=== PATIENT | female | born 1955 | race Caucasian/White ===

== ENCOUNTER 2018-05-27 15:30 | Outpatient (CLI) | payer MEDICARE ==
[~2018-05-27] VITALS: Ht 172.7 cm; Wt 90.9 kg
--- NOTE | ~2018-05-27 | DS ---
PATIENT:SURI DELEON :53 MEDICAL RECORD: [id number] DISCHARGE SUMMARY ADMISSION DATE: 05/27/18 DISCHARGE DATE: 05/29/18 DATE OF SERVICE: 05/29/2018 DIAGNOSES: 1. Unstable angina. 2. Coronary artery disease. 3. Percutaneous transluminal coronary angioplasty/stent, left circumflex and right coronary artery this admission. HOSPITAL COURSE: Ms. Deleon presents with anginal symptomatology, found to have 2-vessel disease of the left circumflex and RCA, underwent successful PTCA and stent of both territories and was discharged home with the addition of aspirin and Plavix to her medical regimen. Follow up with [facility] in 1 month. TRANSINT:[id number] Voice Confirmation ID: [id number] DOCUMENT ID: [id number] TAWANDA CAMPBELL MD at 1741 CC: [id number] DICTATION DATE: 05/29/18 1631 HAND ZIPPER TRIMMER: 05/29/18 2100 DEP CLI 05/29/18 [id number] [place] [address]
--- NOTE | ~2018-05-27 | HEMODYNAMI ---
PATIENT:SURI CANNON MEDICAL RECORD: [id number] : 53 LOCATION:[id number] ADMISSION DATE: 05/27/18 Generatedon:05/28/201812:57 Patient name: SURI CANNON Patient #: [id number] SSN: : 1 Date of study: 05/28/2018 Page: Of Hemodynamic Procedure Report Patient Data Patient Demographics Procedure consent was obtained First Name: SURI Gender: Female Last Name: KASSANDRA : 1955 Patient #: [id number] Age: 62 year(s) Race: Unknown Additional ID: [id number] Contact details Address: [address] [address] State: [place] City: [place] Zip code: [address] Past Medical History Allergies Allergen Reaction Date Comments Reported Bactrim 05/28/2018 Admission Admission Data Admission Date: 05/27/2018 Admission Time: 18:22 Room #: D.2235 Lab Results Lab Result Date: 05/28/2018 Lab Result Time: 0:00 Biochemistry Name Units Result Min Max BUN mg/dl 14 --(--*-)-- 7 18 Creatinine mg/dl 1 --(--*-)-- 0.6 1.3 CBC Name Units Result Min Max Hemoglobin g/dl 14.4 --(*---)-- 13.5 17.5 Procedure Procedure Types Cath Procedure Diagnostic Procedure C [facility] w/Coronaries Sedation Charges Moderate Sedation up to 15 minutes PCI Procedure Coronary Stent Coronary Stent Initial Procedure Description Procedure Date Procedure Date: 05/28/2018 Procedure Start Time: 12:35 Procedure End Time: 12:55 Procedure Staff Name Function Pratik Britton MD Performing Physician Nadine Rivera RT Monitor Juliane Fowler RT Scrub Filiberto Pimentel RN Nurse Procedure Data Cath Procedure Fluoroscopy Diagnostic fluoroscopy Total fluoroscopy Time: 6 time: 6 min min Diagnostic fluoroscopy Total fluoroscopy dose: 709 dose: 709 mGy mGy Contrast Material Contrast Material Type Amount (ml) Isovue 300 94 Entry Location Entry Primary Successful Side Size Upsize Upsize Entry Closure Castillo ccessful Closure Location (Fr) 1 (Fr) 2 (Fr) Remarks Device Remarks Radial Right 6 Fr Mechanical artery Short Compression Estimated blood loss: 10 ml Diagnostic catheters Device Type Used For End Catheter Placement DIAGNOSTIC [place] 110cm 5 Procedure Fr catheter ([id number]) Procedure Complications No complications Procedure Medications Medication Administration Route Dosage 0.9% NaCl I.V. 100 ml/hr Oxygen etCO2 Nasal cannula 2 l/min Heparin Flush Bag added to field 2 bags (1000units/500ml NS) Lidocaine 2% added to field 20 Radial Cocktail added to field 1 syringe (Verapomil 2mg/Nitro 400mcg/Heparin 1500units) Versed I.V. 2 mg Fentanyl I.V. 100 mcg Versed I.V. 1 mg Radial Cocktail I.A. 1 syringe (Verapomil 2mg/Nitro 400mcg/Heparin 1500units) Heparin Bolus I.V. 4000 units Plavix P.O. 75 mg Hemodynamics Rest HGB: 14.4 (g/dl) Heart Rate: 84 (bpm) Snapshots Pre Cath Intra NCS Post Cath Vital Signs Time Heart Resp SPO2 etCO2 NIBP (mmHg) Rhythm Pain Sedation Rate (ipm) (%) (mmHg) Status Level (bpm) 12:20:40 84 18 96 0 173/88(140) NSR 0 (11) 10(A) , No pain 12:25:35 75 17 95 35.9 145/79(114) NSR 0 (11) 10(A) , No pain 12:30:24 74 15 94 37.5 145/76(121) NSR 0 (11) 10(A) , No pain 12:35:11 69 13 93 13.5 123/71(98) NSR 0 (11) 10(A) , No pain 12:39:57 81 30 90 34.5 108/67(85) NSR 0 (11) 9(A) , No pain 12:44:38 69 12 90 36 119/68(82) NSR 0 (11) 9(A) , No pain 12:50:04 84 18 89 35.9 162/96(145) NSR 0 (11) 10(A) , No pain 12:54:58 78 20 85 32.2 164/89(142) NSR 0 (11) 10(A) , No pain Medications Time Medication Route Dose Verified Delivered Reason Not es Effectiveness by by 12:20:38 0.9% NaCl I.V. 100 Filiberto Filiberto Per physician ml/hr Margarito Pimentel RN RN 12:20:51 Oxygen etCO2 2 l/min Filiberto Filiberto Per physician Nasal Margarito Pimentel cannula RN RN 12:21:08 Heparin Flush added 2 bags Filiberto Filiberto used for Bag to Lorthania Pimentel procedure (1000units/500ml field RN RN NS) 12:21:19 Lidocaine 2% added 20ml Filiberto Filiberto for local to vial Lorigan Margarito anesthetic field RN RN 12:30:32 Radial Cocktail added 1 Filiberto Filiberto used for (Verapomil to syringe Margarito Pimentel procedure 2mg/Nitro field RN RN 400mcg/Heparin 1500units) 12:33:37 Versed I.V. 2 mg Filiberto Filiberto for sedation Margarito Pimentel RN RN 12:33:45 Fentanyl I.V. 100 mcg Filiberto Filiberto for sedation Margarito Pimentel RN RN 12:36:08 Versed I.V. 1 mg Filiberto Filiberto for sedation Margarito Pimentel RN RN 12:37:09 Radial Cocktail I.A. 1 Filiberto Pratik for (Verapomil syringe Margarito Britton MD vasodilation 2mg/Nitro RN 400mcg/Heparin 1500units) 12:42:49 Heparin Bolus I.V. 4000 Filiberto Filiberto for units Margarito Pimentel anticoagulation RN RN 12:51:45 Plavix P.O. 75 mg Filiberto Filiberto for Margarito Pimentel antiplatelet RN RN therapy Procedure Log Time Note 11:54:02 Signed procedure consent form obtained from patient. 11:54:05 Time tracking: Regular hours (M-F 7:00 - 5:00) 11:54:13 Plan of Care:Hemodynamics will remain stable., Cardiac rhythm will remain stable., Comfort level will be maintained., Respiratory function will remain adequate., Patient/ family verbilizes understanding of procedure., Procedure tolerated without complication., Recovers from procedure without complications.. 11:55:58 H&P Date Dictated: 05/28/2018 Within 30 days and on chart.. 11:56:17 Patient allergic to Bactrim 11:56:59 Lab Result : Creatinine 1 mg/dl 11:56:59 Lab Result : BUN 14 mg/dl 11:56:59 Lab Result : Hemoglobin 14.4 g/dl 12:00:34 Filiberto Pimentel RN sent for patient. Start room use. 12:11:12 Patient received from Med/Surg to CCL 1 Alert and oriented. Tansferred to table in Supine position. 12:11:14 Warm blankets applied, and kurtis hugger turned on for patient comfort. 12:11:14 Correct patient and procedure confirmed by team. 12:11:15 ECG and BP/O2 sat monitors applied to patient. 12:19:34 Vital chart was started 12:20:38 0.9% NaCl 100 ml/hr I.V. was administered by Filiberto Pimentel RN; Per physician; 12:20:51 Oxygen 2 l/min etCO2 Nasal cannula was administered by Filiberto Pimentel RN; Per physician; 12:21:08 Heparin Flush Bag (1000units/500ml NS) 2 bags added to field was administered by Filiberto Pimentel RN; used for procedure; 12:21:19 Lidocaine 2% 20ml vial added to field was administered by Filiberto Pimentel RN; for local anesthetic; 12:24:54 Baseline sample Acquired. 12:24:58 Rhythm: sinus rhythm 12:24:59 Full Disclosure recording started 12:24:59 Pre-procedure instructions explained to patient. 12:25:00 Pre-op teaching completed and patient verbalized understanding. 12:25:03 Family in patients room. 12:25:05 Patient NPO since Midnight. 12:25:07 Is the patient allergic to Iodine/contrast media? No. 12:25:11 Is patient on blood thinner?Yes 12:25:14 ACC The patient was administered the following blood thiners within the last 24 hours: ACCPlavix 12:25:17 Patient diabetic? No. 12:25:20 Patient not . Patient is over age 55. 12:25:23 Previous problem with sedation/anesthesia? No ? 12:25:24 Snore? Yes 12:25:25 Sleep apnea? No 12:25:27 Deviated septum? No 12:25:28 Opens mouth fully? Yes 12:25:28 Sticks out tongue? Yes 12:25:30 Airway obstruction? No ? 12:25:33 Dentures? No ? 12:25:36 Modified Mynor's test Ulnar < 7 seconds 12:25:39 Patient pain scale 0/10 ?. 12:25:44 IV patent on arrival in left hand with 0.9% NaCl at [facility]. 12:25:47 Lab results completed and on chart. 12:25:50 Right Radial & Right Groin area was prepped with chlora-prep and draped in sterile fashion 12:25:51 Alarms reviewed by R. N. 12:25:52 Sharps counted by scrub and verified by R.N. 12:25:56 Use device set Radial Dx or PCI 12:25:57 ACIST Syringe (11143) opened to sterile field. 12:25:58 Bag Decanter (2002S) opened to sterile field. 12:25:59 ACIST Hand Control (41993) opened to sterile field. 12:25:59 ACIST Manifold (14334) opened to sterile field. 12:26:01 Tegaderm 4 x 4 (1626W) opened to sterile field. 12:26:17 Medline Cath Pack ([id number]) opened to sterile field. 12:26:17 DIAGNOSTIC WIRE .035 260cm J wire (839823) opened to sterile field. 12:26:22 SHEATH 6Fr Prelude Radial ([id number]) opened to sterile field. 12:30:32 Radial Cocktail (Verapomil 2mg/Nitro 400mcg/Heparin 1500units) 1 syringe added to field was administered by Filiberto Pimentel RN; used for procedure; 12:30:42 Zero performed for pressure channel P1 12:32:27 --------ALL STOP TIME OUT------ 12:32:27 Final Timeout: patient, procedure, and site verified with staff and physician. All members of the team are in agreement. 12:32:30 Right Radial & Right Groin site verified by team. 12:32:34 Physical assessment completed. ASA score P 2 - A patient with mild systemic disease as per Pratik Britton MD. 12:32:37 Sedation plan: IV Moderate Sedation Medication:Versed, Fentanyl 12:33:37 Versed 2 mg I.V. was administered by Filiberto Pimentel RN; for sedation; 12:33:45 Fentanyl 100 mcg I.V. was administered by Filiberto Pimentel RN; for sedation; 12:35:31 Procedure started. 12:35:48 Local anesthetic to right radial artery with Lidocaine 2% by Pratik Britton MD.INITIAL ACCESS ONLY 12:36:08 Versed 1 mg I.V. was administered by Filiberto Pimentel RN; for sedation; 12:36:34 A 6 Fr Short sheath was inserted into the Right Radial artery 12:36:52 A DIAGNOSTIC [place] 110cm 5 Fr catheter ([id number]) was advanced over the wire and used for Procedure. 12:37:09 Radial Cocktail (Verapomil 2mg/Nitro 400mcg/Heparin 1500units) 1 syringe I.A. was administered by Pratik Britton MD; for vasodilation; 12:37:28 LV gram done using MYLES 12:37:30 Injector settings: Ml/sec: 7, Volume: 15, 12:38:00 EF : 55 % 12:38:31 RCA angiography performed. 12:39:37 Catheter exchanged over wire. 12:39:47 INFLATOR Merit BasixCompak (EW6184) opened to sterile field. 12:40:16 GUIDE 6FR XBLAD 3.5 catheter ([id number]) opened to sterile field. 12:40:39 6 Fr XBLAD 3.5 guide catheter was inserted over the wire 12:42:01 FIELDER XT 190cm guidewire ([id number]) opened to sterile field. 12:42:09 LCA angiography performed. 12:42:32 FIELDER wire advanced. 12:42:49 Heparin Bolus 4000 units I.V. was administered by Filiberto Pimentel RN; for anticoagulation; 12:43:48 Wire advanced across lesion. 12:45:12 Place stent Inflation Number: 1 A INTEGRITY RX 3.0 x 15 stent ([id number]) was prepped and advanced across the Mid CX. The stent was deployed at 13 TERRI for 0:10 (min:sec). 12:45:50 Inflation number: 2 The stent balloon was then re-inflated across the Mid CX to 17 TERRI for 0:10 (min:sec). 12:45:56 Stent catheter was removed intact over wire. 12:47:41 Wire removed. 12:48:07 GUIDE CATHETER EXCHANGED OVER WIRE 12:48:17 GUIDE 6FR EBU 3.0 catheter ([id number]) opened to sterile field. 12:48:48 6 Fr EBU 3 guide catheter was inserted over the wire 12:50:21 GUIDE REMOVED 12:50:50 Procedure ended.(Physican Out) 12:50:58 TR BAND Standard ([id number]) opened to sterile field. 12:51:45 Plavix 75 mg P.O. was administered by Filiberto Pimentel RN; for antiplatelet therapy; 12:51:53 Sheath removed intact; hemostasis achieved with Mechanical Compression to the Right Radial artery. 12:52:46 Fluoroscopy time 06.00 minutes. 12:52:50 Flurop Dose total: 709 12:52:50 Fluoroscopy dose: 709 mGy 12:53:04 Contrast amount:Isovue 300 94ml. 12:53:06 Sharps counted by scrub and verified by R.N. 12:53:08 TR band inflated with 13cc of air. 12:53:13 Post-procedure physical assessment completed. ASA score P 2 - A patient with mild systemic disease as per Pratik Britton MD. 12:53:16 Post procedure rhythm: sinus rhythm 12:53:19 Estimated blood loss: 10 ml 12:53:20 Post procedure instruction explained to patient.Patient verbalizes understanding. 12:53:21 Patient needs reinforcement of post procedure teaching. 12:54:54 Procedure type changed to Cath procedure, Diagnostic procedure, LHC, LHC w/Coronaries, Sedation Charges, Moderate Sedation up to 15 minutes, PCI procedure, Coronary Stent, Coronary Stent Initial 12:55:34 Procedure and supply charges have been captured, reviewed, submitted and are correct. 12:55:37 Procedure Complication : No complications 12:55:40 Vital chart was stopped 12:55:40 See physician's report for complete and final results. 12:55:41 Report given to Pre/Post Procedure Room. 12:55:44 Patient transfered to Pre/Post Procedure Room with Bed. 12:55:45 Procedure ended. 12:55:45 Full Disclosure recording stopped 12:55:48 End room use (Document Last) Intervention Summary Intervention Notes Time ActionType Lesion and Equipment Action# Pressure Duration Attributes Used 12:45:12 Place stent Mid CX INTEGRITY RX 1 13 00:10 3.0 x 15 stent ([id number]) 12:45:50 Reinflate Mid CX INTEGRITY RX 2 17 00:10 stent 3.0 x 15 balloon stent ([id number]) Device Usage Item Name Manufacture Quantity Catalog Number Hospital Part Current M inimal Lot# / Charge Number Stock Stock Serial# Code ACIST Syringe Acist 1 14643 030782 447428 344678 2 0 (97948) [employer] Bag Decanter Microtek 1 2001S 164171 21386 835684 5 (2001S) Medical Inc. ACIST Hand Acist 1 32410 995537 205919 104208 5 Control (61122) [employer] Inc ACIST Manifold Acist 1 55727 608208 146904 930064 5 (60732) [employer] Inc Tegaderm 4 x 4 3M 1 1626W 771519 762278 949586 5 (1626W) Medline Cath Cardinal 1 [id number] 935076 02871 442534 5 Pack Health ([id number]) DIAGNOSTIC WIRE St Dinh 1 998995 444885 468654 714246 3 0 .035 260cm J wire (894684) SHEATH 6Fr Merit 1 [id number] 482470 607630 365405 5 Prelude Radial Medical ([id number]) DIAGNOSTIC Terumo 1 40-2611 052468 714135 218330 5 [place] 110cm 5 Fr catheter (677160) INFLATOR Merit Merit 1 OY2465 481673 637546 783881 1 5 [employer] ASA Medical (BT6947) GUIDE 6FR XBLAD Cardinal 1 [id number] 976728 737390 658961 1 0 3.5 catheter Health ([id number]) FIELDER XT Aleman 1 [id number] 925376 87497 519752 5 190cm guidewire Vascular ([id number]) INTEGRITY RX Medtronic 1 [id number] 060941 497733 061021 5 [id number] 3.0 x 15 stent ([id number]) GUIDE 6FR EBU Medtronic 1 [id number] 867981 02272 942706 0 3.0 catheter ([id number]) TR BAND Terumo 1 [id number] 667451 772039 479703 4 0 Standard ([id number]) Signature Audit [place] Stage Time Signature Unsigned Intra-Procedure 05/28/2018 Nadine Rivera 12:57:17 PM RT(R) Signatures Monitor : Nadine Rivera Signature : RT Date : Time : [id number] [facility] [place] [address]
--- NOTE | ~2018-05-27 | HEMODYNAMI ---
PATIENT:SURI CANNON MEDICAL RECORD: [id number] : 53 LOCATION:[facility] D.2117 ADMISSION DATE: 05/27/18 Generatedon:05/29/201816:35 Patient name: SURI CANNON Patient #: [id number] SSN: : 1 Date of study: 05/29/2018 Page: Of Hemodynamic Procedure Report Patient Data Patient Demographics Procedure consent was obtained First Name: SURI Gender: Female Last Name: KASSANDRA : 1955 Patient #: [id number] Age: 62 year(s) Race: Unknown Additional ID: [id number] Contact details Address: [place] [address] State: [place] City: [place] Zip code: [address] Past Medical History Allergies Allergen Reaction Date Comments Reported Bactrim 05/28/2018 Bactrim 05/29/2018 Admission Admission Data Admission Date: 05/27/2018 Admission Time: 18:22 [facility] Lab Results Lab Result Date: 05/28/2018 Lab Result Time: 0:00 Biochemistry Name Units Result Min Max BUN mg/dl 14 --(--*-)-- 7 18 Creatinine mg/dl 1 --(--*-)-- 0.6 1.3 CBC Name Units Result Min Max Hemoglobin g/dl 14.4 --(*---)-- 13.5 17.5 Procedure Procedure Types Cath Procedure PCI Procedure Coronary Stent Coronary Stent Initial Procedure Description Procedure Date Procedure Date: 05/29/2018 Procedure Start Time: 16:21 Procedure End Time: 16:34 Procedure Staff Name Function Pratik Britton MD Performing Physician Reji Puga RT Monitor Francois Dent RN Nurse Edwin Gaytan RT Scrub Procedure Data Cath Procedure Fluoroscopy Diagnostic fluoroscopy Total fluoroscopy Time: 1.7 time: 1.7 min min Diagnostic fluoroscopy Total fluoroscopy dose: dose: 62.82 mGy 62.82 mGy Contrast Material Contrast Material Type Amount (ml) Isovue 300 38 Entry Location Entry Primary Successful Side Size Upsize Upsize Entry Closure Succes sful Closure Location (Fr) 1 (Fr) 2 (Fr) Remarks Device Remarks Femoral Right 6 Fr Exoseal artery Short Estimated blood loss: 10 ml Procedure Medications Medication Administration Route Dosage Oxygen etCO2 Nasal cannula 2 l/min Heparin Flush Bag added to field 2 bags (1000units/500ml NS) 0.9% NaCl I.V. 100 ml/hr Fentanyl I.V. 100 mcg Versed I.V. 1 mg Fentanyl I.V. 100 mcg Versed I.V. 1 mg Heparin Bolus I.V. 4000 units Hemodynamics Rest HGB: 14.4 (g/dl) Heart Rate: 72 (bpm) Snapshots Pre Cath Intra NCS Post Cath Vital Signs Time Heart Resp SPO2 etCO2 NIBP (mmHg) Rhythm Pain Sedation Rate (ipm) (%) (mmHg) Status Level (bpm) 16:06:24 70 17 97 0 176/86(126) NSR 0 (11) 10(A) , No pain 16:10:58 76 17 95 0 159/86(144) NSR 0 (11) 10(A) , No pain 16:15:29 73 16 90 0 135/67(109) NSR 0 (11) 10(A) , No pain 16:19:47 66 16 97 36.7 114/66(99) NSR 0 (11) 10(A) , No pain 16:24:03 71 17 96 37.4 121/71(101) NSR 0 (11) 9(A) , No pain 16:28:17 71 16 96 47.2 107/64(85) NSR 0 (11) 9(A) , No pain 16:32:31 68 15 97 26.9 107/62(73) NSR 0 (11) 9(A) , No pain Medications Time Medication Route Dose Verified Delivered Reason Notes Effectiveness by by 16:06:59 Oxygen etCO2 2 Pratik Parrish Per physician Nasal l/min Tobi Dent RN cannula 16:15:56 Heparin Flush added 2 Pratik Parrish used for Bag to bags Tobi Dent tipple mechanic (1000units/500ml field NS) 16:16:07 0.9% NaCl I.V. 100 Pratik Parrish Per physician ml/hr Tobi Dent RN 16:21:57 Fentanyl I.V. 100 Pratik Parrish for sedation mcg Tobi Dent RN 16:22:04 Versed I.V. 1 mg Pratik Parrish for sedation Tobi Dent RN 16:23:36 Fentanyl I.V. 100 Pratik Parrish for sedation mcg Tobi Dent RN 16:23:40 Versed I.V. 1 mg Pratik Parrish for sedation Tobi Dent RN 16:24:49 Heparin Bolus I.V. 4000 Pratik Parrish for units Tobi Dent RN anticoagulation Procedure Log Time Note 15:35:40 Edwin Gaytan RT(R) sent for patient. Start room use. 15:45:41 Time tracking: Regular hours (M-F 7:00 - 5:00) 15:45:49 Plan of Care:Hemodynamics will remain stable., Cardiac rhythm will remain stable., Comfort level will be maintained., Respiratory function will remain adequate., Patient/ family verbilizes understanding of procedure., Procedure tolerated without complication., Recovers from procedure without complications.. 15:58:14 Patient received from PCU to [facility] 3 Alert and oriented. Tansferred to table in Supine position. 15:58:15 Warm blankets applied, and kurtis hugger turned on for patient comfort. 15:58:16 Correct patient and procedure confirmed by team. 15:59:11 Signed procedure consent form obtained from patient. 15:59:14 ECG and BP/O2 sat monitors applied to patient. 16:04:54 Vital chart was started 16:04:56 Baseline sample Acquired. 16:05:01 Rhythm: sinus rhythm 16:05:03 Full Disclosure recording started 16:06:13 H&P Date Dictated: 05/27/2018 Within 30 days and on chart.. 16:06:53 Pre-procedure instructions explained to patient. 16:06:54 Pre-op teaching completed and patient verbalized understanding. 16:06:59 Oxygen 2 l/min etCO2 Nasal cannula was administered by Francois Dent RN; Per physician; 16:07:05 Family in patients room. 16:07:07 Patient NPO since Breakfast. 16:07:32 Patient allergic to Bactrim 16:07:36 Is the patient allergic to Iodine/contrast media? No. 16:07:42 Is patient on blood thinner?Yes 16:07:49 ACC The patient was administered the following blood thiners within the last 24 hours: ACCPlavix 16:08:31 Patient diabetic? No. 16:08:41 ----Pre-sedation anethsthesia assessment.---- 16:08:47 Previous problem with sedation/anesthesia? No ? 16:08:52 Snore? Yes 16:08:54 Sleep apnea? No 16:08:58 Deviated septum? No 16:09:00 Opens mouth fully? Yes 16:09:00 Sticks out tongue? Yes 16:09:03 Airway obstruction? No ? 16:09:07 Dentures? No ? 16:09:11 Pre procedure: right dorsailis pedis pulse 2+ Normal; easily identifiable; not easily obliterated 16:09:17 Patient pain scale 0/10 ?. 16:09:28 IV patent on arrival in left forearm with 0.9% NaCl at [facility]. 16:09:35 Right groin area was prepped with chlora-prep and draped in sterile fashion 16:09:42 Alarms reviewed by R. N. 16:09:42 Sharps counted by scrub and verified by R.N. 16:12:23 CHOICE PT Extra Support 182cm wire ([id number]) opened to sterile field. 16:12:24 INFLATOR Merit BasixCompak ([id number]) opened to sterile field. 16:12:48 SHEATH Prelude 6Fr 0.035 ([id number]-2E-67-035) opened to sterile field. 16:13:04 Use device set CATH PACK 16:13:05 ACIST Syringe (64060) opened to sterile field. 16:13:06 ACIST Hand Control (11157) opened to sterile field. 16:13:06 ACIST Manifold (35499) opened to sterile field. 16:13:07 Medline Cath Pack ([id number]) opened to sterile field. 16:13:08 Bag Decanter () opened to sterile field. 16:13:09 DIAGNOSTIC WIRE .035 260cm J wire (084399) opened to sterile field. 16:13:26 Tegaderm 4 x 4 (1626W) opened to sterile field. 16:15:56 Heparin Flush Bag (1000units/500ml NS) 2 bags added to field was administered by Francois Dent RN; used for procedure; 16:16:07 0.9% NaCl 100 ml/hr I.V. was administered by Francois Dent RN; Per physician; 16:18:58 Physician arrived 16:18:58 --------ALL STOP TIME OUT------ 16:18:59 Final Timeout: patient, procedure, and site verified with staff and physician. All members of the team are in agreement. 16:19:04 Right groin site verified by team. 16:19:07 Physical assessment completed. ASA score P 2 - A patient with mild systemic disease as per Pratik Britton MD. 16:19:11 Sedation plan: IV Moderate Sedation Medication:Versed, Fentanyl 16:20:42 Procedure started. 16:21:44 Local anesthetic to right femoral artery with Lidocaine 2% by Pratik Britton MD.INITIAL ACCESS ONLY 16:21:57 Fentanyl 100 mcg I.V. was administered by Francois Dent RN; for sedation; 16:22:04 Versed 1 mg I.V. was administered by Francois Dnet RN; for sedation; 16:22:26 A 6 Fr Short sheath was inserted into the Right Femoral artery 16:22:43 GUIDE 6FR AR 2.0 SH catheter ([id number]) opened to sterile field. 16:23:26 6 Fr AR 2 SH guide catheter was inserted over the wire 16:23:36 Fentanyl 100 mcg I.V. was administered by Francois Dent RN; for sedation; 16:23:40 Versed 1 mg I.V. was administered by Francois Dent RN; for sedation; 16:24:03 CHOICE wire advanced. 16:24:38 Wire advanced across lesion. 16:24:49 Heparin Bolus 4000 units I.V. was administered by Francois Dent RN; for anticoagulation; 16:25:27 Place stent Inflation Number: 1 A INTEGRITY RX 2.5 x 14 stent ([id number]) was prepped and advanced across the Prox RCA. The stent was deployed at 17 TERRI for 0:10 (min:sec). 16:26:19 Stent catheter was removed intact over wire. 16:26:19 Wire removed. 16:26:20 Guide catheter removed. 16:26:30 EXOSEAL 6Fr (EX600) opened to sterile field. 16:27:05 Sheath removed intact; hemostasis achieved with Exoseal to the Right Femoral artery. 16:27:08 Procedure ended.(Physican Out) 16:28:42 Fluoroscopy time 01.70 minutes. 16:28:50 Flurop Dose total: 62.82 16:28:50 Fluoroscopy dose: 62.82 mGy 16:29:01 Contrast amount:Isovue 300 38ml. 16:29:03 Sharps counted by scrub and verified by R.N. 16:31:06 Insertion/operative site no bleeding no hematoma. 16:31:09 Post-op/insertion site Right Femoral artery dressed using a 4 x 4 and Tegaderm. 16:31:16 Post right femoral artery:stable 16:31:21 Post Procedure Pulses reassessed and unchanged 16:31:24 Post-procedure physical assessment completed. ASA score P 2 - A patient with mild systemic disease as per Pratik Britton MD. 16:31:29 Post procedure rhythm: sinus rhythm 16:31:33 Estimated blood loss: 10 ml 16:31:35 Post procedure instruction explained to patient.Patient verbalizes understanding. 16:31:36 Patient needs reinforcement of post procedure teaching. 16:31:37 Procedure and supply charges have been captured, reviewed, submitted and are correct. 16:34:24 Vital chart was stopped 16:34:29 See physician's report for complete and final results. 16:34:37 Report given to PCU. 16:34:44 Patient transfered to PCU with Bed. 16:34:52 Procedure ended. 16:34:52 Full Disclosure recording stopped 16:34:56 End room use (Document Last) Intervention Summary Intervention Notes Time ActionType Lesion and Equipment Action# Pressure Duration Attributes Used 16:25:27 Place stent Prox RCA INTEGRITY RX 1 17 00:10 2.5 x 14 stent ([id number]) Device Usage Item Name Manufacture Quantity Catalog Number Hospital Part Current Minimal Lot# / Charge Number Stock Stock Serial# Code CHOICE PT Extra [place] 1 [id number] 486929 083575 5 Support 182cm Scientific wire ([id number]) INFLATOR Merit Merit 1 [id number] 393340 185479 232749 15 [facility] ([id number]) SHEATH Prelude Merit 1 [id number] 347406 2910402 792953 5 6Fr 0.035 Medical (AAD-3T-05-035) ACIST Syringe Acist 1 21635 288434 940480 882660 20 (54663) [employer] Inc ACIST Hand Acist 1 06072 412350 018483 160996 5 Control (74920) [employer] ACIST Manifold Acist 1 30601 157897 146356 251286 5 (86607) [employer] Medline Cath Cardinal 1 [id number] 117986 33447 236034 5 Pack Health ([id number]) Bag Decanter Microtek 1 2002S 473527 27226 740944 5 (2001S) Medical Inc. DIAGNOSTIC WIRE St Dinh 1 711363 274027 373407 635349 30 .035 260cm J wire (797862) Tegaderm 4 x 4 3M 1 1626W 309580 073591 222371 5 (1626W) GUIDE 6FR AR Medtronic 1 [id number] 094528 75665 967835 1 2.0 SH catheter ([id number]) INTEGRITY RX Medtronic 1 [id number] 647878 407394 235880 5 [id number] 2.5 x 14 stent ([id number]) EXOSEAL 6Fr Cardinal 1 EX600 994310 839888 630593 10 (EX600) Health Signature Audit [place] Stage Time Signature Unsigned Intra-Procedure 05/29/2018 Reji Puga 4:35:50 PM RT(R) (CV) Signatures Monitor : Reji Puga RT Signature : Date : Time : [facility] [address] [place] [address]
--- NOTE | ~2018-05-27 | OP ---
PATIENT NAME: SURI CANNON MEDICAL RECORD: [id number] :53 LOCATION:D.CAT ADMISSION DATE: SURGEON: TAWANDA CAMPBELL MD DATE OF OPERATION: 05/28/2018 PROCEDURES: 1. PTCA and stent of the left circumflex. 2. Left heart catheterization. 3. Selective coronary angiography. 4. Left ventriculogram. INDICATION: Unstable angina and coronary artery disease. PROCEDURE IN DETAIL: After informed consent was obtained and after detailed explanation of risks, benefits as well as alternative therapies, the patient elected to proceed with angiogram and angioplasty. The right radial area was prepped and draped in normal sterile fashion. Right radial artery was cannulated via modified Seldinger technique with placement of 6-Nigerian sheath. All catheters exchanged through this sheath. FINDINGS: The left ventriculogram was performed in a standard 30-degree MYLES view, reveals good cardiac wall motion throughout all segments. Overall ejection fraction estimated 60%. SELECTIVE CORONARY ANGIOGRAPHY: 1. Left main is with no significant angiographic disease. 2. Left anterior descending has mild irregularities, but no flow-limiting stenosis. 3. The left circumflex has an ulcerated 85% stenosis in the mid vessel. 4. Right coronary has a 75% stenosis in the mid vessel. PTCA AND STENT OF THE LEFT CIRCUMFLEX: The stent used was a 3.0 x 15 mm Integrity. Result was 0% residual stenosis. OVERALL IMPRESSION: Successful PTCA and stent of the left circumflex going from over 80% initial stenosis with ulceration to 0% residual. PLAN: Plan for PTCA and stent of the RCA in the a.m. TRANSINT:[id number] Voice Confirmation ID: [id number] DOCUMENT ID: [id number] TAWANDA CAMPBELL MD at 1741 CC: [id number] DICTATION DATE: 05/28/18 1256 FINANCIAL CONSULTANT: 05/28/18 1412 DEP CLI 05/29/18 [place] [id number]
--- NOTE | ~2018-05-27 | OP ---
PATIENT NAME: SURI CANNON MEDICAL RECORD: [id number] :53 LOCATION:D.CAT ADMISSION DATE: SURGEON: TAWANDA CAMPBELL MD DATE OF OPERATION: 05/29/2018 PROCEDURES: 1. PTCA and stent to the RCA. 2. Selective coronary angiography. INDICATIONS: Angina and coronary artery disease. DESCRIPTION OF THE PROCEDURE: After informed consent was obtained and after a detailed description of risks, benefits as well as alternative therapies, the patient elected to proceed with angiogram and angioplasty. The right femoral area was prepped and draped in normal sterile fashion. Right femoral artery was cannulated via modified Seldinger technique with placement of 6-Serbian sheath. All catheters exchanged through this sheath. FINDINGS: The right coronary has 70% stenosis in the proximal mid vessel. This was addressed with a 2.5 x 14 mm Integrity stent. Result was 0% residual stenosis. OVERALL IMPRESSION: Successful PTCA and stent of the right coronary artery going from 70% initial stenosis to 0% residual. TRANSINT:[id number] Voice Confirmation ID: [id number] DOCUMENT ID: [id number] TAWANDA CAMPBELL MD at 1741 CC: [id number] DICTATION DATE: 05/29/18 1630 TERMITE TREATER: 05/29/182056 [facility] CLI 05/29/18 [place] [id number] [place] [address]
[2018-05-27] MEDS ORDERED: COZAAR25 MG PO (16:06)
[2018-05-27] MEDS ORDERED: NORVASC5 MG PO (16:06)
[2018-05-27 16:45] LABS: BASOPHILS 0.4 % (0-2); EOSINOPHILS 4.2 % (0-7); HEMATOCRIT 41.5 % (36.0-48.0); HEMOGLOBIN 14.1 g/dL (12-16); IMMATURE GRANULOCYTES 0.2 % (0-5); LYMPHOCYTES 17.9 % (15-50); MCH 30.1 pg (26.0-34.0); MCV 88.7 fL (80.0-100.0); MEAN PLATELET VOLUME 10.8 fL (7.4-10.4); MONOCYTES 11.2 % (2-11); NEUTROPHILS 66.1 % (40-80); PLATELET COUNT 142 10x3/uL (130-400); RBC 4.68 10x6/uL (4.00-5.40); WBC 5.7 10x3/uL (4.8-10.8)
[2018-05-27 16:55] LABS: INR 1.34 (0.85-1.17); PROTIME 16.1 SECONDS (11.6-15.0)
[2018-05-27 17:02] LABS: ALBUMIN 3.3 g/dL (3.4-5.0); ALKALINE PHOSPHATASE 261 U/L (46-116); ALT (SGPT) 522 U/L (10-68); BILIRUBIN - TOTAL 3.36 mg/dL (0.2-1.3); CALC OSMOLALITY 278 mosm/kg (275-300); CALCIUM 9.2 mg/dL (8.5-10.1); CARBON DIOXIDE 26.2 mmol/L (21.0-32.0); CHLORIDE - SERUM 102 mmol/L (98-107); CREATININE - SERUM 1.4 mg/dL (0.6-1.3); GLUCOSE 114 mg/dL (74-106); POTASSIUM - SERUM 3.8 mmol/L (3.5-5.1); PROTEIN - SERUM 7.2 g/dL (6.4-8.2); SODIUM 138 mmol/L (136-145); UREA NITROGEN 17 mg/dL (7-18); eGFR NON AFRICAN AMERICAN 40 mL/min (90-120)
[2018-05-27 17:03] LABS: APTT 27.8 SECONDS (22.8-39.4)
[2018-05-27 17:15] LABS: CKMB 0.5 U/L (0.0-3.6); CREATINE KINASE 49 UL (21-215); TROPONIN-I < 0.017 ng/mL (0.000-0.060)
[2018-05-27 17:50] VITALS: BP 155/114
[2018-05-27 19:00] VITALS: BP 131/79
[2018-05-27 20:18] VITALS: BP 160/84
[2018-05-27 22:04] VITALS: BP 140/62
[2018-05-28 02:38] VITALS: BP 155/82; BMI 30.4
[2018-05-28 04:25] VITALS: BP 152/73
[2018-05-28 08:46] VITALS: BP 136/66
[2018-05-28 09:33] VITALS: Ht 172.7 cm; Wt 90.9 kg
[2018-05-28 11:30] LABS: BASOPHILS 0.6 % (0-2); EOSINOPHILS 6.1 % (0-7); HEMOGLOBIN 14.4 g/dL (12-16); IMMATURE GRANULOCYTES 0.2 % (0-5); MCHC 34.3 g/dL (31.0-37.0); MCV 87.5 fL (80.0-100.0); MEAN PLATELET VOLUME 10.4 fL (7.4-10.4); MONOCYTES 13.3 % (2-11); NEUTROPHILS 60.8 % (40-80); PLATELET COUNT 142 10x3/uL (130-400); WBC 5.4 10x3/uL (4.8-10.8)
[2018-05-28 11:39] LABS: ANION GAP 13.7 mmol/L (8-16); CALCIUM 9.3 mg/dL (8.5-10.1); CARBON DIOXIDE 27.5 mmol/L (21.0-32.0); POTASSIUM - SERUM 4.2 mmol/L (3.5-5.1)
[2018-05-28 12:14] VITALS: BP 140/71
[2018-05-29] MEDS ORDERED: PLAVIX75 MG PO (17:43)
[2018-05-29] MEDS ORDERED: ASPIRIN81 MG PO (17:43)
== END 2018-05-29 21:42 | disposition home or self-care (01) ==
LOC: OBSVTIME → D.ER 15:30 → D.CATH 15:30 → D.CLR 18:22 → D.EDHOLD 18:22 → D.MS 18:22 → D.EDHOLD 18:22 → D.ER 18:22 → OBSVTIME 18:24 → D.MS 21:32 → D.EDHOLD 21:32 → D.ER 22:15 → D.MS 05-28 13:15 → D.CLR 05-28 13:15 → EDSTATUS 05-28 13:30 → D.M2 05-28 14:58 → D.CLR 05-28 14:58 → D.M2 05-29 21:42 → D.CATH 05-29 21:42 → D.M2 05-29 21:42
PROVIDERS: Family Medicine; Internal Medicine Interventional Cardiology
DX: I25.110 Atherosclerotic heart disease of native coronary artery with unstable angina pectoris (principal); R61 Generalized hyperhidrosis; I10 Essential (primary) hypertension